=== PATIENT | female | born 1990 | race Caucasian/White ===

== ENCOUNTER 2017-03-13 00:23 | Emergency (ER) | payer OTHER ==
[~2017-03-13] VITALS: Ht 162.6 cm; Wt 68.0 kg
[2017-03-13 00:38] VITALS: BP 111/78
[2017-03-13] MEDS ORDERED: DEXAMETHASONE SOD PHOSPHATE 10 MG/ML VIAL ONE (02:20)
[2017-03-13] MEDS ORDERED: diphenhydrAMINE HCL 50 MG/ML VIAL ONE (02:20)
[2017-03-13] MEDS ORDERED: DEXAMETHASONE SOD PHOSPHATE 4 MG/ML VIAL IM ONE (02:30)
[2017-03-13] MEDS ORDERED: diphenhydrAMINE HCL 50 MG/ML VIAL IM ONE (02:30)
== END 2017-03-13 02:34 | disposition home or self-care (01) ==
LOC: ER 00:23
DX: S60.464A Insect bite (nonvenomous) of right ring finger, initial encounter (principal); S50.861A Insect bite (nonvenomous) of right forearm, initial encounter; W57.XXXA Bitten or stung by nonvenomous insect and other nonvenomous arthropods, initial encounter; Y93.89 Activity, other specified; Y92.89 Other specified places as the place of occurrence of the external cause; Y99.9 Unspecified external cause status
CPT/HCPCS: 96372 ×2; 99284; A4606; J1100; J1200; Z7610

== ENCOUNTER 2017-06-19 03:14 | Emergency (ER) | payer SELFPAY ==
[~2017-06-19] VITALS: Ht 162.6 cm; Wt 61.2 kg
[2017-06-19] MEDS ORDERED: EPINEPHRINE (1:1000) 1 MG/ML AMPUL ONE (03:53)
[2017-06-19] MEDS ORDERED: diphenhydrAMINE HCL 50 MG/ML VIAL ONE (03:53)
[2017-06-19] MEDS ORDERED: predniSONE 20 MG TABLET ONE (03:54)
[2017-06-19] MEDS ORDERED: FAMOTIDINE (20 MG) 20 MG TABLET ONE (03:54)
[2017-06-19] MEDS ORDERED: predniSONE 10 MG TABLET PO ONE (04:00)
[2017-06-19] MEDS ORDERED: EPINEPHRINE (1:1000) MDV 30 MG/30ML VIAL SUBCUT ONE (04:00)
[2017-06-19] MEDS ORDERED: diphenhydrAMINE HCL 50 MG/ML VIAL IM ONE (04:00)
[2017-06-19] MEDS ORDERED: FAMOTIDINE (20 MG) 20 MG TABLET PO ONE (04:00)
[2017-06-19 04:05] VITALS: BP 124/71
== END 2017-06-19 04:28 | disposition home or self-care (01) ==
LOC: ER 03:14
DX: L50.0 Allergic urticaria (principal); T78.40XA Allergy, unspecified, initial encounter
CPT/HCPCS: 96372 ×2; 99284; A4606; J0171; J1200; J7512; Z7610

== ENCOUNTER 2017-07-03 18:53 | Emergency (ER) | payer SELFPAY ==
[~2017-07-03] VITALS: Ht 162.6 cm; Wt 68.0 kg
[2017-07-03 19:11] VITALS: BP 117/72
[2017-07-03] MEDS ORDERED: IBUPROFEN 600 MG TABLET PO ONE ×2 (19:30→20:36)
== END 2017-07-03 20:47 | disposition home or self-care (01) ==
LOC: ER 18:55
DX: S20.212A Contusion of left front wall of thorax, initial encounter (principal); S20.211A Contusion of right front wall of thorax, initial encounter; V49.59XA Passenger injured in collision with other motor vehicles in traffic accident, initial encounter; Y93.89 Activity, other specified; Y92.410 Unspecified street and highway as the place of occurrence of the external cause; Y99.8 Other external cause status
CPT/HCPCS: 71010; 99283; A4606; Z7610

== ENCOUNTER 2017-08-10 01:09 | Emergency (ER) | payer SELFPAY ==
[~2017-08-10] VITALS: Ht 162.6 cm; Wt 68.0 kg
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
[2017-08-10 02:00] LABS: BASOPHILS # (AUTO) 0.1 /CMM (0.0-0.2); BASOPHILS % (AUTO) 0.9 % (0.0-2.0); EOSINOPHILS # (AUTO) 0.3 /CMM (0.0-0.7); EOSINOPHILS % (AUTO) 3.6 % (0.0-6.0); HEMATOCRIT 37 % (33-45); LYMPHOCYTES # (AUTO) 2.8 /CMM (0.8-4.8); LYMPHOCYTES % (AUTO) 36.8 % (20.0-44.0); MEAN CORPUSCULAR HEMOGLOBIN 24 PG (26.0-33.0); MEAN CORPUSCULAR HGB CONC 32 g/dl (31.0-36.0); MEAN CORPUSCULAR VOLUME 75 fL (82-100); MONOCYTES # (AUTO) 0.5 /CMM (0.1-1.30); MONOCYTES % (AUTO) 6.2 % (2.0-12.0); NEUTROPHILS % (AUTO) 52.5 % (43.0-81.0); PLATELET COUNT (AUTO) 311 /CMM (150-450); RDW COEFFICIENT OF VARIATION 15.1 (11.5-15.0); RED BLOOD CELL COUNT(AUTO) 4.91 MIL/uL (4.0-5.2); WHITE BLOOD COUNT (AUTO) 7.6 K/uL (4.3-11.0)
[2017-08-10] MEDS ORDERED: ONDANSETRON 4 MG TAB.RAPDIS SL ONE (02:00)
[2017-08-10] MEDS ORDERED: IBUPROFEN 400 MG TABLET PO ONE (02:00)
[2017-08-10 02:02] LABS: APPEARANCE,URINE CLOUDY (CLEAR); BILIRUBIN,URINE NEGATIVE (NEGATIVE); BLOOD, URINE 1+ Ery/uL (NEGATIVE); COLOR,URINE YELLOW (YELLOW); KETONES,URINE NEGATIVE (NEGATIVE); LEUKOCYTE ESTERASE ,URINE TRACE (NEGATIVE); NITRITE, URINE POSITIVE (NEGATIVE); PH,URINE 6.5 (5.0-8.0); PROTEIN,URINE NEGATIVE (NEGATIVE); UGLUCOSE NEGATIVE (NEGATIVE); UROBILINOGEN,URINE 0.2 EU/dL (0.2)
[2017-08-10] MEDS ORDERED: IBUPROFEN 600 MG TABLET PO ONE (02:07)
[2017-08-10] MEDS ORDERED: ONDANSETRON 4 MG TAB.RAPDIS ONE (02:07)
[2017-08-10] MEDS ORDERED: IBUPROFEN 200 MG TABLET ONE (02:07)
[2017-08-10 02:08] LABS: CALCIUM, SERUM 9.3 mg/dL (8.5-10.1); CREATININE 0.6 mg/dL (0.6-1.3); POTASSIUM 3.8 mmol/L (3.5-5.1)
[2017-08-10 02:15] LABS: ALBUMIN 3.7 g/dL (3.4-5.0); BILIRUBIN,DIRECT 0.1 mg/dL (0.0-0.2); BILIRUBIN,TOTAL 0.3 mg/dL (0.2-1.0); TOTAL PROTEIN, SERUM 8.2 g/dL (6.4-8.2)
[2017-08-10 02:16] LABS: BACTERIA,URINE Many /HPF (None Seen); SQUAMOUS EPITHELIAL CELL,UR Few /HPF (None Seen)
--- NOTE | 2017-08-10 03:04 | NUR ---
FITNESS TECHNICIAN AT BEDSIDE
[2017-08-10] MEDS ORDERED: KETOROLAC TROMETHAMINE INJ 60 MG/2 ML VIAL IM ONE ×2 (03:09→03:30)
[2017-08-10] MEDS ORDERED: NITROFURANTOIN/NITROFURAN MAC 100 MG CAPSULE PO ONE (04:00)
[2017-08-10] MEDS ORDERED: NITROFURANTOIN/NITROFURAN MAC 100 MG CAPSULE ONE (04:07)
--- NOTE | 2017-08-10 04:35 | NUR ---
PATIENT SEEN BY MD MCCARTHY. AWAITING D/C MEDICATIONS/PAPERWORK
--- NOTE | 2017-08-10 04:43 | NUR ---
PATIENT GIVEN MEDICATION PRESCRIPTIONS, MEDICAL ADVICE FROM MD AND LEFT WITH FAMILY.
[2017-08-10 04:46] VITALS: BP 119/85
== END 2017-08-10 04:47 | disposition home or self-care (01) ==
LOC: ER 01:17
DX: N83.201 Unspecified ovarian cyst, right side (principal); N39.0 Urinary tract infection, site not specified
CPT/HCPCS: 36415; 76856; 80048; 80076; 81001; 84703; 85025; 87077; 87086; 87186; 96372; 99285; A4606; J1885; Q0162; Z7610; 81000-TC

== ENCOUNTER 2019-07-10 09:54 | Inpatient (IN) | payer SELFPAY ==
[~2019-07-10] VITALS: Ht 162.6 cm; Wt 68.0 kg
--- NOTE | 2019-07-10 10:00 | NUR ---
NORA, FROM HOME, C/O ABD PAIN SINCE THIS MORNING 06/06 PS, +N/V -DIARRHEA. PATIENT A/OX4, BREATHING EVEN AND UNLABORED, CHANGED INTO A GOWN, ATTACHED TO THE INSTRUCTIONAL TECHNOLOGIST.
[2019-07-10] MEDS ORDERED: ONDANSETRON HCL/PF 4 MG/2 ML VIAL ONE (10:11)
[2019-07-10] MEDS ORDERED: MORPHINE SULFATE INJ 4 MG/ML DISP.SYRIN ONE ×2 (10:11→11:55)
[2019-07-10 10:19] LABS: BASOPHILS % (AUTO) 0.5 % (0.0-2.0); EOSINOPHILS % (AUTO) 2.2 % (0.0-6.0); HEMATOCRIT 34 % (33-45); LYMPHOCYTES # (AUTO) 3.2 /CMM (0.8-4.8); LYMPHOCYTES % (AUTO) 31.8 % (20.0-44.0); MEAN CORPUSCULAR HGB CONC 32 g/dl (31.0-36.0); MEAN CORPUSCULAR VOLUME 77 fL (82-100); MONOCYTES # (AUTO) 0.5 /CMM (0.1-1.30); MONOCYTES % (AUTO) 5.1 % (2.0-12.0); NEUTROPHILS # (AUTO) 6.1 /CMM (1.8-8.9); NEUTROPHILS % (AUTO) 60.4 % (43.0-81.0); PLATELET COUNT (AUTO) 315 /CMM (150-450)
[2019-07-10 10:25] LABS: CREATININE 0.7 mg/dL (0.6-1.3); POTASSIUM 3.3 mmol/L (3.5-5.1)
[2019-07-10] MEDS ORDERED: IV NS 0.9% 1,000 ML BAG IV ONE (10:30)
[2019-07-10] MEDS ORDERED: ONDANSETRON HCL/PF 4 MG/2 ML VIAL IVP ONE (10:30)
[2019-07-10] MEDS ORDERED: MORPHINE SULFATE INJ 2 MG/ML DISP.SYRIN IV ONE ×2 (10:30→12:00)
[2019-07-10 10:39] LABS: ALBUMIN 3.6 g/dL (3.4-5.0); BILIRUBIN,DIRECT 0.1 mg/dL (0.0-0.2); BILIRUBIN,TOTAL 0.6 mg/dL (0.2-1.0); TOTAL PROTEIN, SERUM 7.7 g/dL (6.4-8.2)
[2019-07-10 11:22] LABS: APPEARANCE,URINE Clear (CLEAR); BILIRUBIN,URINE Negative (NEGATIVE); BLOOD, URINE Moderate Ery/uL (NEGATIVE); COLOR,URINE Yellow (YELLOW); KETONES,URINE Negative (NEGATIVE); LEUKOCYTE ESTERASE ,URINE Trace (NEGATIVE); NITRITE, URINE Negative (NEGATIVE); PH,URINE 5.5 (5.0-8.0); PROTEIN,URINE 30 mg/dl (NEGATIVE); UGLUCOSE Negative (NEGATIVE); UROBILINOGEN,URINE 0.2 EU/dL (0.2)
[2019-07-10 11:24] LABS: BACTERIA,URINE Few /HPF (None Seen); SQUAMOUS EPITHELIAL CELL,UR Few /HPF (None Seen)
[2019-07-10] MEDS ORDERED: KETOROLAC TROMETHAMINE INJ 30 MG/ML VIAL IV ONE (11:30)
[2019-07-10] MEDS ORDERED: KETOROLAC TROMETHAMINE INJ 30 MG/ML VIAL ONE (11:42)
--- NOTE | 2019-07-10 12:14 | NUR ---
CALLED OFFICE OF DR MCMANUS, LEFT VOICEMAIL.
--- NOTE | 2019-07-10 12:35 | NUR ---
DR MADRIGAL SPEAKING WITH DR MCMANUS
--- NOTE | 2019-07-10 13:43 | NUR ---
DR MCMANUS SEEN AND EVALUATED PATIENT.
[2019-07-10] MEDS ORDERED: ANESTHESIA TRAY IN PYXIS 1 EA TRAY MC ONE (14:15)
--- NOTE | 2019-07-10 14:20 | NUR ---
REPORT GIVEN TO LARRY GRANDE. PATIENT SIGNED CONSENTS FORM, WITNESSED BY THIS PUR[employer]. DR. MCMANUS AT BEDSIDE EXPLAINED RISKS AND BENEFITS OF PROCEDURE. PATIENT'S STABLE. AT BEDSIDE. OR TAKEN PATIENT TO SURGERY ROOM.
[2019-07-10] MEDS ORDERED: HYDROMORPHONE INJ 2 MG/ML DISP.SYRIN ONE (14:45)
[2019-07-10] MEDS ORDERED: ROCURONIUM BROMIDE 50 MG/5 ML ONE (14:45)
[2019-07-10] MEDS ORDERED: MIDAZOLAM HCL 2 MG/2ML VIAL ONE (14:45)
[2019-07-10 17:30] VITALS: BP 106/89
[2019-07-10] MEDS ORDERED: ONDANSETRON HCL/PF 4 MG/2 ML VIAL IVP PRN (17:30)
--- NOTE | 2019-07-10 17:42 | NUR ---
MS/RN - Admission Received patient from recovery, s/p explor lap right oophorectomy and left partial oophorectomy with Dr. Prakash. Patient is awake, A/O x 4, denies pain, not in any form of distress, stable on room air. Skin assessment done, lap incision with mepilex dressing in place, clean, dry, and intact. Abdomen soft and non-distended, tender to touch on lap site. Kearns catheter draining clear yellow urine, to be removed POD#1. All belongings accounted. Post op orders noted and carried out. Will notify Dr. Carpenter for further admission orders.
[2019-07-10] MEDS: IV LR 1000 ML 1,000 ML IV PRN (18:00)
--- NOTE | 2019-07-10 18:50 | NUR ---
MS/RN - End of shift summary No significant change in condition seen, remain afebrile, denies abdominal pain, stable on room air, tolerated regular diet, no c/o n/v. IVF LR at 125 ml/hr infusing well on the LAC with no signs of infiltration. All needs attended. Will continue with current medical management.
--- NOTE | 2019-07-10 19:45 | NUR ---
MS RN OPENING NOTES RECEIVED PATIENT FROM MORNING SHIFT, ALERT AND ORIENTED X 4. VERBALLY RESPONSIVE AND ABLE TO FOLLOW DIRECTIONS. BREATHING REGULAR AND UNLABORED ON ROOM AIR. LEFT AC G18 IV LINE INTACT AND PATENT, INFUSING WELL WITH NO BLEEDING OR S/S OF INFECTION/INFILTRATION NOTED. COMPLAINED OF 2/10 PAIN ON LOWER ABDOMEN PER PATIENT "IT'S TOLERABLE PAIN. NON-PHARMACOLOGICAL INTERVENTIONS PROVIDED. NO ACTIVE BLEEDING NOTED ON SURGICAL INCISION. BED LOW AND LOCKED ON SEMI FOWLERS POSITION. CALL LIGHT IN REACH. WILL CONTINUE TO MONITOR.
[2019-07-10 20:00] VITALS: BP 106/72
--- NOTE | 2019-07-11 01:30 | NUR ---
MS RN NOTES PATIENT COMPLAINED OF LOWER ABDOMINAL PAIN, PAIN MEDICATION OFFERED BUT REFUSED. OBSERVED WITH MINIMAL BLEEDING ON SURGICAL DRESSING. NON-PHARMACOLOGICAL INTERVENTIONS PROVIDED. WILL CONTINUE TO MONITOR.
--- NOTE | 2019-07-11 05:25 | NUR ---
MS RN NOTES MUNOZ CATHETER REMOVED WITH NO BLEEDING OR OTHER DISCHARGES SEEN, 800CC OUTPUT NOTED. WILL CONTINUE TO MONITOR.
--- NOTE | 2019-07-11 06:20 | NUR ---
MS RN CLOSING NOTES RECEIVED PATIENT FROM MORNING SHIFT, ALERT AND ORIENTED X 4. VERBALLY RESPONSIVE AND ABLE TO FOLLOW DIRECTIONS. BREATHING REGULAR AND UNLABORED ON ROOM AIR. LEFT AC G18 IV LINE INTACT AND PATENT, INFUSING WELL WITH NO BLEEDING OR S/S OF INFECTION/INFILTRATION NOTED. COMPLAINED OF 3/10 LOWER ABDOMEN PAIN, DECLINED PAIN MEDICATION. NON-PHARMACOLOGICAL INTERVENTIONS PROVIDED. MINIMAL BLEEDING NOTED ON SURGICAL DRESSING. MUNOZ CATH REMOVED WITH 800CC CLEAR YELLOW OUTPUT ON URINARY BAG. BED LOW AND LOCKED ON SEMI FOWLERS POSITION. CALL LIGHT IN REACH. WILL CONTINUE TO MONITOR.
[2019-07-11 06:31] LABS: BASOPHILS % (AUTO) 0.1 % (0.0-2.0); HEMATOCRIT 34 % (33-45); HEMOGLOBIN 10.8 g/dL (11.5-14.8); LYMPHOCYTES # (AUTO) 1.3 /CMM (0.8-4.8); LYMPHOCYTES % (AUTO) 7.4 % (20.0-44.0); MEAN CORPUSCULAR HGB CONC 32 g/dl (31.0-36.0); MEAN CORPUSCULAR VOLUME 76 fL (82-100); MONOCYTES % (AUTO) 5.6 % (2.0-12.0); NEUTROPHILS # (AUTO) 14.7 /CMM (1.8-8.9); NEUTROPHILS % (AUTO) 86.9 % (43.0-81.0); PLATELET COUNT (AUTO) 349 /CMM (150-450); RED BLOOD CELL COUNT(AUTO) 4.42 MIL/uL (4.0-5.2)
[2019-07-11 06:52] LABS: CALCIUM, SERUM 8.8 mg/dL (8.5-10.1); CREATININE 0.7 mg/dL (0.6-1.3); POTASSIUM 3.9 mmol/L (3.5-5.1)
[2019-07-11] MEDS: HYDROMORPHONE 1 MG/1 ML DISP.SYRIN IV PRN ×5 (07:41→18:59)
--- NOTE | 2019-07-11 07:47 | NUR ---
RN MS NOTES PT IN BED, AWAKE, ALERT AND ORIENTED, RESPIRATIONS NORMAL, WITH COMPLAINT OF ABDOMINAL PAIN, MEDS GIVEN ORDERED, CALL LIGHT WITHIN REACH, NEEDS ATTENDED.
[2019-07-11 08:54] VITALS: BP 114/64
--- NOTE | 2019-07-11 11:28 | NUR ---
RN MS NOTES PT IN BED, RESTING, PAIN MEDS GIVEN FOR PAIN MANAGEMENT, NO IN DISTRESS, CALL LIGHT WITHIN REACH, NEEDS ATTENDED.
[2019-07-11 16:14] VITALS: BP 99/59
--- NOTE | 2019-07-11 18:13 | NUR ---
RN MS NOTES PT IN BED, AWAKE, ALERT AND ORIENTED, RESPIRATIONS NORMAL, PAIN MEDICATION GIVEN FOR PAIN MANAGEMENT, TOLERATING CURRENT DIET WELL, ENCOURAGED AMBULATION, CALL LIGHT WITHIN REACH, NEEDS ATTENDED.
--- NOTE | 2019-07-11 19:15 | NUR ---
MS/RN NOTES RECEIVED PT. LYING IN BED. PT. IS AWAKE, ALERT AND ORIENTED X4. BREATHING EVEN AND UNLABORED ON ROOM AIR. NO SOB, RESPIRATORY DISTRESS OR COMPLAINTS OF PAIN NOTED AT THIS TIME. PT. WITH LEFT AC 18 GAUGE IV SALINE LOCK PRESENT, PATENT AND INTACT. PT. WITH FAMILY MEMBERS PRESENT AT BEDSIDE. BED LOCKED AND IN LOWEST POSITION, SIDE RAILS UP X2, CALL LIGHT WITHIN REACH, WILL CONTINUE TO MONITOR.
[2019-07-11 20:13] VITALS: BP 96/59
[2019-07-12] MEDS: HYDROMORPHONE 1 MG/1 ML DISP.SYRIN IV PRN ×4 (00:03→12:45)
[2019-07-12 06:31] LABS: BASOPHILS % (AUTO) 0.4 % (0.0-2.0); EOSINOPHILS % (AUTO) 1.7 % (0.0-6.0); HEMATOCRIT 29 % (33-45); HEMOGLOBIN 9.5 g/dL (11.5-14.8); LYMPHOCYTES # (AUTO) 2.8 /CMM (0.8-4.8); LYMPHOCYTES % (AUTO) 29.9 % (20.0-44.0); MEAN CORPUSCULAR HGB CONC 33 g/dl (31.0-36.0); MEAN CORPUSCULAR VOLUME 77 fL (82-100); MONOCYTES # (AUTO) 0.6 /CMM (0.1-1.30); MONOCYTES % (AUTO) 6.1 % (2.0-12.0); NEUTROPHILS # (AUTO) 5.9 /CMM (1.8-8.9); NEUTROPHILS % (AUTO) 61.9 % (43.0-81.0); PLATELET COUNT (AUTO) 271 /CMM (150-450); WHITE BLOOD COUNT (AUTO) 9.5 K/uL (4.3-11.0)
--- NOTE | 2019-07-12 07:00 | NUR ---
MS/RN NOTES PT. IS LYING IN BED RESTING. BREATHING EVEN AND UNLABORED ON ROOM AIR. NO SOB, RESPIRATORY DISTRESS OR COMPLAINTS OF PAIN NOTED AT THIS TIME. PT. WITH LEFT AC 18 GAUGE IV SALINE LOCK PRESENT, PATENT AND INTACT. ALL PT. NEEDS MET. BED LOCKED AND IN LOWEST POSITION, SIDE RAILS UP X2, CALL LIGHT WITHIN REACH, WILL ENDORSE TO DAYSHIFT NURSE FOR CONTINUITY OF CARE.
[2019-07-12 07:15] LABS: CALCIUM, SERUM 8.2 mg/dL (8.5-10.1); CREATININE 0.6 mg/dL (0.6-1.3); MAGNESIUM 1.8 mg/dL (1.8-2.4); PHOSPHORUS 3.5 mg/dL (2.5-4.9); POTASSIUM 3.5 mmol/L (3.5-5.1)
--- NOTE | 2019-07-12 07:27 | NUR ---
RN MS OPENING NOTES Patient received on room air, no sob noted, patient remains a/o x4 and denies pain at this time. L ac 18 SL. Patient is comfortable in her bed at this time. Bed at the lowest setting, call light within reach, side rails up x2.
[2019-07-12 08:27] VITALS: BP 102/68
[2019-07-12] MEDS: IV LR 1000 ML 1,000 ML IV PRN (10:01)
[2019-07-12] MEDS ORDERED: HYDR-4384 PO (11:38)
[2019-07-12] MEDS ORDERED: ONDA4TAB11 PO (11:38)
--- NOTE | 2019-07-12 18:37 | NUR ---
RN NOTES Patient signed discharge papers around 1500 and remains in the room at this time. Patient stated that they wanted to leave around [phone].
--- NOTE | 2019-07-12 19:41 | NUR ---
RECEIVE PT IN BED A/O X 3 AWAKE, STABLE FOR DISCHARGE WANTED TO FINISH IV FLUID.
[2019-07-12 20:00] VITALS: BP 112/68
--- NOTE | 2019-07-12 20:03 | NUR ---
All belongings was taken
--- NOTE | 2019-07-12 20:22 | NUR ---
PATIENT DISCHARGE PATIENT LEFT AT 2002, STABLE CONDITION NO S/S OF DISTRESS NOTED, NO COMPLAIN OF PAIN, REFUSED PIC OF SX SITE DESPITE EXPLAINING RISKS AND BENEFITS, HEALTH EDUCATION AND EXIT CARE WAS PROVIDED EDUCATION ABOUT DISEASE AND RISKS AND BENEFITS FOLLOW UP CARE PROVIDED, VERBALIZED UNDERSTANDING. DOCUMENTS WAS PROVIDED. CONTINUE MEDICATION PRESCRIPTION WAS PROVIDED. VERBALIZED UNDERSTANDING. REMOVED I.V HEPLOCK. ALL BELONGINGS WAS TAKEN, PT LEFT VIA W/C WITH OWN TRANSPORTATION. PATIENT APPRECIATIVE TO NURSES AND THANKFUL. Addendum: 07/12/19 at 2152 by ITALO FOX RN Addendum: Offered and educate FLU vaccine. pt refused despite explaining risks and benefits. pt a/o x 4
== END 2019-07-12 20:05 | disposition home or self-care (01) | DRG 743 ==
LOC: ER 09:54 → MED 13:38
PROVIDERS: ADMIT Hospitalist; ATTEND Hospitalist
DX: N83.511 Torsion of right ovary and ovarian pedicle (principal); D27.1 Benign neoplasm of left ovary; D72.829 Elevated white blood cell count, unspecified; E87.6 Hypokalemia; D27.0 Benign neoplasm of right ovary
CPT/HCPCS: 36415; 76856-TC; 80048-TC; 80076-TC; 81000-TC; 83690-TC; 83735-TC; 84100-TC; 84702-TC; 85025-TC; 85730-TC; 86850-TC; 87081-TC; 87086-TC; 88305-TC; A6253; G0378; J0330; J0690; J1100; J1170; J1885; J2250; J2270; J2405; J2704; J2710; J3490; J7030; J7120

== ENCOUNTER 2023-12-28 23:20 | Emergency (ER) | payer SELFPAY ==
[~2023-12-28] VITALS: Ht 160 cm; Wt 68.0 kg
[~2023-12-28 23:20] MED LIST: HYDR-4384 PO; ONDA4TAB11 PO
[2023-12-29] MEDS ORDERED: ACETAMINOPHEN 325 MG TABLET ONE (00:53)
[2023-12-29 01:00] LABS: APPEARANCE,URINE CLOUDY (CLEAR); BILIRUBIN,URINE NEGATIVE (NEGATIVE); BLOOD, URINE 2+ Ery/uL (NEGATIVE); COLOR,URINE YELLOW (YELLOW); KETONES,URINE NEGATIVE (NEGATIVE); LEUKOCYTE ESTERASE ,URINE 3+ (NEGATIVE); NITRITE, URINE POSITIVE (NEGATIVE); PROTEIN,URINE TRACE mg/dl (NEGATIVE); UGLUCOSE NEGATIVE (NEGATIVE); UROBILINOGEN,URINE 0.2 EU/dL (0.2)
[2023-12-29] MEDS: ACETAMINOPHEN 325 MG TABLET PO ONE (01:04)
[2023-12-29] MEDS: IV NS 0.9% 500 ML BAG IV ONE (01:04)
[2023-12-29 01:14] LABS: ADD URINE CULTURE YES; BACTERIA,URINE 4+ /HPF (None Seen); MUCUS,URINE Few /LPF (None Seen); SQUAMOUS EPITHELIAL CELL,UR Many /HPF (None Seen); WBC,URINE 51-80 /HPF (0-3)
[2023-12-29 01:18] LABS: BASOPHILS # (AUTO) 0.1 K/uL (0.0-0.2); BASOPHILS % (AUTO) 0.5 % (0.0-2.0); EOSINOPHILS # (AUTO) 0.3 K/uL (0.0-0.7); EOSINOPHILS % (AUTO) 2.8 % (0.0-6.0); HEMATOCRIT 33 % (33-45); LYMPHOCYTES # (AUTO) 2.5 K/uL (0.8-4.8); LYMPHOCYTES % (AUTO) 25.4 % (20.0-44.0); MEAN CORPUSCULAR HEMOGLOBIN 24 PG (26.0-33.0); MEAN CORPUSCULAR HGB CONC 33 g/dl (31.0-36.0); MEAN CORPUSCULAR VOLUME 74 fL (82-100); MONOCYTES # (AUTO) 0.8 K/uL (0.1-1.30); MONOCYTES % (AUTO) 7.8 % (2.0-12.0); NEUTROPHILS # (AUTO) 6.1 K/uL (1.8-8.9); NEUTROPHILS % (AUTO) 63.5 % (43.0-81.0); PLATELET COUNT (AUTO) 293 K/uL (150-450); RED BLOOD CELL COUNT(AUTO) 4.51 MIL/uL (4.0-5.2); RED CELL DISTRIBUTION WIDTH 16.7 % (11.5-15.0); WHITE BLOOD COUNT (AUTO) 9.7 K/uL (4.3-11.0)
[2023-12-29 01:26] LABS: CALCIUM, SERUM 9.6 mg/dL (8.5-10.1); CREATININE 0.7 mg/dL (0.6-1.3); POTASSIUM 3.7 mmol/L (3.5-5.1)
[2023-12-29 01:49] LABS: INR 0.88 (0.91-1.10); PARTIAL THROMBOPLASTIN TIME 25.4 SEC (24.3-34.3); PROTHROMBIN TIME 9.4 SECS (9.2-11.1)
[2023-12-29 02:03] LABS: ALBUMIN 3.1 g/dL (3.4-5.0); BILIRUBIN,DIRECT 0.2 mg/dL (0.0-0.2); BILIRUBIN,TOTAL 0.4 mg/dL (0.2-1.0); TOTAL PROTEIN, SERUM 7.7 g/dL (6.4-8.2)
[2023-12-29] MEDS ORDERED: NITR100C6 PO (04:34)
[2023-12-29 05:03] VITALS: BP 123/84; TEMP 98.1; O2SAT 98
== END 2023-12-29 05:04 | disposition home or self-care (01) ==
LOC: ER 23:23
DX: O23.41 Unspecified infection of urinary tract in pregnancy, first trimester (principal); N39.0 Urinary tract infection, site not specified; O46.8X1 Other antepartum hemorrhage, first trimester; O26.891 Other specified pregnancy related conditions, first trimester; R10.2 Pelvic and perineal pain; Z98.890 Other specified postprocedural states; Z79.899 Other long term (current) drug therapy
CPT/HCPCS: 99284; 76856; 85025; 80048; 87086; 80076; 81001; 36415; 85730; 84702; J7040